=== PATIENT | male | born 1960 | race Caucasian/White ===

== ENCOUNTER 2020-07-08 09:52 | Emergency (ER) | payer SELFPAY ==
[2020-07-08] MEDS ORDERED: diphenhydrAMINE 50 MG/ML VIAL ONE (11:00)
[2020-07-08] MEDS ORDERED: Metoclopramide HCl 10 MG/2 ML VIAL ONE (11:00)
[2020-07-08] MEDS ORDERED: Ondansetron PF 4 MG/2 ML Vial ONE (11:00)
[2020-07-08] MEDS ORDERED: Ketorolac Tromethamine 30 MG/ML VIAL ONE (11:00)
[2020-07-08] MEDS ORDERED: Magnesium 2 GM/50 ML BAG (IN WATER) ONE (12:45)
[2020-07-08] MEDS ORDERED: methylPREDNISolone Sod Succ/PF 125 MG/2 ML VIAL ONE (12:45)
== END 2020-07-08 13:41 | disposition home or self-care (01) ==
LOC: ERS 09:52
DX: G43.909 Migraine, unspecified, not intractable, without status migrainosus (principal)
CPT/HCPCS: 96365; 96367; 96375; J1200; J1885; J2405; J2765; J2930; J3475